=== PATIENT | male | born 1990 | race Two or more races ===

== ENCOUNTER 2018-02-11 08:42 | Day surgery (SDC) | payer OTHER ==
[~2018-02-11 08:42] MED LIST: CARAFATE1 G PO
== END 2018-02-11 14:30 | disposition home or self-care (01) ==
LOC: AMB-ENDOS 08:42
DX: K60.3 Anal fistula (principal); R19.5 Other fecal abnormalities

== ENCOUNTER 2018-04-21 05:24 | Day surgery (SDC) | payer OTHER ==
[2018-04-21] MEDS ORDERED: PERCOCET 5-3251 EACH PO (08:25)
== END 2018-04-21 13:10 | disposition home or self-care (01) ==
LOC: CIR.AMB 05:24
DX: L05.01 Pilonidal cyst with abscess (principal); K60.3 Anal fistula